=== PATIENT | female | born 1930 | race Two or more races ===

== ENCOUNTER 2019-06-06 02:58 | Emergency (ER) | payer OTHER ==
[~2019-06-06] VITALS: Ht 157.5 cm; Wt 49.9 kg
[2019-06-06] MEDS ORDERED: ZESTRIL5 MG (03:07)
[2019-06-06] MEDS ORDERED: LIPITOR20 MG (03:07)
[2019-06-06] MEDS ORDERED: IRON236 MG (03:07)
[2019-06-06] MEDS ORDERED: URSO250 MG (03:08)
== END 2019-06-06 14:44 | disposition home or self-care (01) ==
LOC: ER 02:58
DX: K52.89 Other specified noninfective gastroenteritis and colitis (principal)